=== PATIENT | male | born 1965 | race Two or more races ===

== ENCOUNTER 2024-10-16 04:10 | Inpatient (IN) | payer MEDICAID, OTHER ==
[~2024-10-16] VITALS: Ht 160 cm; Wt 79.5 kg
[2024-10-16 04:38] LABS: BASOPHILS % (AUTO) 0.7 % (0.0-2.0); EOSINOPHILS % (AUTO) 3.7 % (1.0-6.0); HEMATOCRIT 42.9 % (41-53); HEMOGLOBIN 15.2 g/dL (13.5-17.5); LYMPHOCYTES # (AUTO) 2.3 K/uL (1.0-4.8); LYMPHOCYTES % (AUTO) 21.7 % (22.0-44.0); MEAN CORPUSCULAR HEMOGLOBIN 31.7 pg (26.0-34.0); MEAN CORPUSCULAR HGB CONC 35.3 G/dL (31.0-37.0); MEAN CORPUSCULAR VOLUME 90 fL (80-100); MONOCYTES # (AUTO) 0.8 K/uL (0.1-1.0); MONOCYTES % (AUTO) 7.4 % (2.0-9.0); NEUTROPHILS # (AUTO) 6.9 K/uL (1.8-7.7); NEUTROPHILS % (AUTO) 66.5 % (40.0-70.0); PLATELET COUNT (AUTO) 193 K/uL (150-450); RED BLOOD CELL COUNT(AUTO) 4.79 MIL/uL (4.50-5.90); RED CELL DISTRIBUTION WIDTH 13.1 % (11.5-14.5); WHITE BLOOD COUNT (AUTO) 10.4 K/uL (4.5-11.0)
[2024-10-16 04:52] LABS: ANION GAP 9 mmol/L (8-16); CALCIUM, TOTAL 8.8 mg/dL (8.8-10.5); CARBON DIOXIDE 25 mmol/L (22-29); CHLORIDE 100 mmol/L (98-107); CREATININE 0.97 mg/dL (0.60-1.30); GLOMERULAR FILTR. RATE CALC > 60 mL/min (>60); GLUCOSE,RANDOM 233 mg/dL (70-110); POTASSIUM 3.8 mmol/L (3.5-5.1); SODIUM SERUM 134 mmol/L (136-145); UREA NITROGEN, BLOOD 13 mg/dL (7-18)
[2024-10-16] MEDS ORDERED: CARV6.25 PO (04:52)
[2024-10-16] MEDS ORDERED: LISI-893 PO (04:52)
[2024-10-16] MEDS ORDERED: EMPA25TA3 PO (04:52)
[2024-10-16] MEDS ORDERED: ATOR40TA28 PO (04:52)
[2024-10-16] MEDS ORDERED: CLOP75TA60 PO (04:52)
[2024-10-16] MEDS ORDERED: METF-81 PO (04:52)
[2024-10-16] MEDS ORDERED: GLIP5TAB16 PO (04:52)
[2024-10-16] MEDS ORDERED: DEXT38GE12 PO (04:52)
[2024-10-16 04:57] LABS: ALBUMIN 3.2 g/dL (3.4-5.0); BILIRUBIN,DIRECT 0.1 mg/dL (0.00-0.20); BILIRUBIN,TOTAL 0.5 mg/dL (0.1-1.0); TOTAL PROTEIN, SERUM 7.1 g/dL (6.4-8.2)
[2024-10-16 05:00] LABS: TROPONIN I-HIGH SENSITIVITY 10 ng/L (<76)
[2024-10-16 05:05] LABS: ALCOHOL, BLOOD (SERUM) < 3 mg/dL (0-10)
[2024-10-16] MEDS: MORPHINE SULFATE 4 MG/ML SYRINGE IVP ONE (05:06)
[2024-10-16 05:09] LABS: LIPASE 677 U/L (16-77)
[2024-10-16] MEDS: SODIUM CHLORIDE 0.9% 1,000 ML IV ONE ×2 (05:26→15:56)
[2024-10-16] MEDS: IOHEXOL 9 MG/ML 500 ML BOTTLE PO ONE (07:18)
[2024-10-16] MEDS: PIPERACILLIN/TAZO 3.375 GM/D5W 50 ML IV ONE (07:19)
[2024-10-16] MEDS: SODIUM CHLORIDE 0.9% 2,000 ML IV ONE (07:19)
[2024-10-16] MEDS: HYDROmorphone HCL 2 MG/ML SYRINGE IVP ONE (07:20)
[2024-10-16 07:40] LABS: TRIGLYCERIDES 156 mg/dL (15-150)
[2024-10-16 09:08] LABS: APPEARANCE,URINE CLEAR (CLEAR); BILIRUBIN,URINE NEGATIVE (NEGATIVE); COLOR,URINE COLORLESS (YELLOW); GLUCOSE, URINE (UA) 300-500 mg/dL (NEGATIVE); KETONES,URINE NEGATIVE (NEGATIVE); LEUKOCYTE ESTERASE ,URINE NEGATIVE (NEGATIVE); NITRATE,URINE NEGATIVE (NEGATIVE); OCCULT BLOOD,URINE NEGATIVE (NEGATIVE); PROTEIN,URINE TRACE mg/dL (NEGATIVE); SPECIFIC GRAVITIY, URINE 1.006 (1.003-1.030); UROBILINOGEN,URINE <=1.0 mg/dL (<=1.0)
[2024-10-16 09:16] LABS: BACTERIA,URINE None Seen /HPF (None Seen); RBC,URINE None Seen /HPF (0-2); WBC,URINE None Seen /HPF (0-5)
[2024-10-16 12:00] VITALS: BP 130/90; PULSE 70; RESP 18; TEMP 98.6; O2SAT 70
[2024-10-16] MEDS ORDERED: PIPERACILLIN/TAZO 3.375 GM/D5W 50 ML IV SCH (13:00)
[2024-10-16] MEDS ORDERED: PIPERACILLIN/TAZO 3.375 GM/D5W 50 ML IV ONE (13:00)
[2024-10-16] MEDS ORDERED: MORPHINE SULFATE 4 MG/ML SYRINGE IVP PRN ×2 (13:15→15:45)
[2024-10-16] MEDS ORDERED: ONDANSETRON HCL 4 MG/2 ML VIAL IVP PRN ×2 (13:15→15:45)
[2024-10-16] MEDS ORDERED: MAGNESIUM HYDROXIDE SUSPENSION 30 ML UDCUP PO PRN (15:45)
[2024-10-16] MEDS ORDERED: IPRATROPIUM BROMIDE 0.5 MG/2.5 ML NEB SOLUTION NEB PRN (15:45)
[2024-10-16] MEDS ORDERED: ACETAMINOPHEN 325 MG TABLET PO PRN (15:45)
[2024-10-16] MEDS ORDERED: OxyCODONE HCL/ACETAMINOPHEN 5-325 MG TABLET PO PRN (15:45)
[2024-10-16] MEDS ORDERED: BISACODYL 10 MG RECTAL RECTAL SUPPOSITORY PR PRN (15:45)
[2024-10-16] MEDS ORDERED: ZOLPIDEM TARTRATE 5 MG TABLET PO PRN (15:45)
[2024-10-16] MEDS ORDERED: ALBUTEROL SULFATE 2.5 MG/0.5 ML NEB SOLUTION NEB PRN (15:45)
[2024-10-16] MEDS: PIPERACILLIN/TAZO 3.375 GM/D5W 50 ML IV SCH (15:56)
[2024-10-16] MEDS: HEPARIN SODIUM,PORCINE 5,000 UNITS/ML VIAL SQ SCH (17:53)
[2024-10-16] MEDS: DEXTROSE 5%-0.45% SODIUM CHL 1,000 ML IV SCH (17:53)
[2024-10-16] MEDS: DOCUSATE SODIUM 100 MG CAPSULE PO SCH (20:05)
[2024-10-16] MEDS: CLOPIDOGREL BISULFATE 75 MG TABLET PO ONE (20:05)
[2024-10-16 20:10] VITALS: BP 140/83; PULSE 68; RESP 18; TEMP 98; O2SAT 95
[2024-10-17] MEDS: PIPERACILLIN/TAZO 3.375 GM/D5W 50 ML IV SCH (04:29)
[2024-10-17] MEDS ORDERED: SODIUM CHLORIDE 0.9% 500 ML IV ONE (04:33)
[2024-10-17 05:15] VITALS: BP 132/78; PULSE 67; RESP 18; TEMP 98.3; O2SAT 96
[2024-10-17 07:01] LABS: BASOPHILS % (AUTO) 0.4 % (0.0-2.0); EOSINOPHILS % (AUTO) 3.1 % (1.0-6.0); HEMOGLOBIN 14.6 g/dL (13.5-17.5); LYMPHOCYTES # (AUTO) 2.3 K/uL (1.0-4.8); LYMPHOCYTES % (AUTO) 28.5 % (22.0-44.0); MEAN CORPUSCULAR HEMOGLOBIN 31.4 pg (26.0-34.0); MEAN CORPUSCULAR HGB CONC 34.8 G/dL (31.0-37.0); MEAN CORPUSCULAR VOLUME 90 fL (80-100); MONOCYTES # (AUTO) 0.5 K/uL (0.1-1.0); MONOCYTES % (AUTO) 6.2 % (2.0-9.0); NEUTROPHILS # (AUTO) 4.9 K/uL (1.8-7.7); NEUTROPHILS % (AUTO) 61.8 % (40.0-70.0); PLATELET COUNT (AUTO) 179 K/uL (150-450); RED BLOOD CELL COUNT(AUTO) 4.65 MIL/uL (4.50-5.90); RED CELL DISTRIBUTION WIDTH 13.5 % (11.5-14.5)
[2024-10-17 07:11] LABS: ALANINE AMINOTRANSFERASE 23 U/L (12-78); ALBUMIN 2.9 g/dL (3.4-5.0); ALKALINE PHOSPHATASE 88 U/L (46-116); AMYLASE 115 U/L (25-115); ANION GAP 9 mmol/L (8-16); ASPARTATE AMINOTRANSFERASE 16 U/L (15-37); BILIRUBIN,TOTAL 0.8 mg/dL (0.1-1.0); CALCIUM, TOTAL 8.8 mg/dL (8.8-10.5); CARBON DIOXIDE 26 mmol/L (22-29); CHLORIDE 108 mmol/L (98-107); GLOMERULAR FILTR. RATE CALC > 60 mL/min (>60); GLUCOSE,RANDOM 140 mg/dL (70-110); LIPASE 69 U/L (16-77); POTASSIUM 3.7 mmol/L (3.5-5.1); SODIUM SERUM 143 mmol/L (136-145); TOTAL PROTEIN, SERUM 6.6 g/dL (6.4-8.2); UREA NITROGEN, BLOOD 6 mg/dL (7-18)
[2024-10-17 08:27] VITALS: BP 122/79; PULSE 83; RESP 18; TEMP 98.4; O2SAT 97
[2024-10-17] MEDS: PANTOPRAZOLE SODIUM 40 MG/VIAL IVP SCH (08:31)
[2024-10-17 09:00] LABS: TROPONIN I-HIGH SENSITIVITY 16 ng/L (<76)
[2024-10-17 10:29] VITALS: BP 120/76; PULSE 65; RESP 18; TEMP 98.2; O2SAT 97
[2024-10-17 16:08] VITALS: BP 127/74; PULSE 58; RESP 17; TEMP 98.4; O2SAT 98
[2024-10-17 19:28] VITALS: BP 122/71; PULSE 68; RESP 18; TEMP 98.2; O2SAT 98
[2024-10-17 23:59] VITALS: BP 131/77; PULSE 67; RESP 18; TEMP 98.3; O2SAT 98
[2024-10-18 04:40] VITALS: BP 124/72; PULSE 63; RESP 18; TEMP 98.4; O2SAT 98
[2024-10-18 07:25] VITALS: BP 134/80; PULSE 56; RESP 18; TEMP 98.1; O2SAT 100
[2024-10-18 07:25] LABS: BASOPHILS % (AUTO) 1.1 % (0.0-2.0); EOSINOPHILS % (AUTO) 3.3 % (1.0-6.0); HEMATOCRIT 40.9 % (41-53); HEMOGLOBIN 14.3 g/dL (13.5-17.5); LYMPHOCYTES # (AUTO) 2.5 K/uL (1.0-4.8); LYMPHOCYTES % (AUTO) 30.9 % (22.0-44.0); MEAN CORPUSCULAR HEMOGLOBIN 31.3 pg (26.0-34.0); MEAN CORPUSCULAR HGB CONC 35.1 G/dL (31.0-37.0); MEAN CORPUSCULAR VOLUME 89 fL (80-100); MONOCYTES # (AUTO) 0.5 K/uL (0.1-1.0); MONOCYTES % (AUTO) 6.3 % (2.0-9.0); NEUTROPHILS # (AUTO) 4.7 K/uL (1.8-7.7); NEUTROPHILS % (AUTO) 58.4 % (40.0-70.0); PLATELET COUNT (AUTO) 176 K/uL (150-450); RED BLOOD CELL COUNT(AUTO) 4.59 MIL/uL (4.50-5.90); RED CELL DISTRIBUTION WIDTH 13.3 % (11.5-14.5)
[2024-10-18 07:48] LABS: ALANINE AMINOTRANSFERASE 19 U/L (12-78); ALBUMIN 2.8 g/dL (3.4-5.0); ALKALINE PHOSPHATASE 81 U/L (46-116); AMYLASE 94 U/L (25-115); ANION GAP 6 mmol/L (8-16); ASPARTATE AMINOTRANSFERASE 14 U/L (15-37); BILIRUBIN,TOTAL 0.6 mg/dL (0.1-1.0); CALCIUM, TOTAL 8.6 mg/dL (8.8-10.5); CARBON DIOXIDE 27 mmol/L (22-29); CHLORIDE 108 mmol/L (98-107); CREATININE 0.96 mg/dL (0.60-1.30); GLOMERULAR FILTR. RATE CALC > 60 mL/min (>60); GLUCOSE,RANDOM 192 mg/dL (70-110); LIPASE 75 U/L (16-77); SODIUM SERUM 141 mmol/L (136-145); TOTAL PROTEIN, SERUM 6.5 g/dL (6.4-8.2); UREA NITROGEN, BLOOD 8 mg/dL (7-18)
[2024-10-18 10:58] VITALS: BP 125/76; PULSE 54; RESP 18; TEMP 98.4; O2SAT 100
[2024-10-18] MEDS ORDERED: METR500 PO (12:46)
[2024-10-18] MEDS ORDERED: LEVO-72 PO (12:46)
== END 2024-10-18 14:20 | disposition home or self-care (01) | DRG 440 ==
LOC: EMS 04:10 → EDH 07:22 → 6S 10:58 → 5N 10-17 09:56
PROVIDERS: ADMIT Hospitalist; ATTEND Hospitalist
DX: K85.10 Biliary acute pancreatitis without necrosis or infection (principal); I10 Essential (primary) hypertension; I25.10 Atherosclerotic heart disease of native coronary artery without angina pectoris; I48.0 Paroxysmal atrial fibrillation; E11.65 Type 2 diabetes mellitus with hyperglycemia; E78.5 Hyperlipidemia, unspecified; F10.10 Alcohol abuse, uncomplicated; E66.9 Obesity, unspecified; Z68.31 Body mass index [BMI] 31.0-31.9, adult; Z87.442 Personal history of urinary calculi; Z79.02 Long term (current) use of antithrombotics/antiplatelets; Z90.49 Acquired absence of other specified parts of digestive tract; Z95.5 Presence of coronary angioplasty implant and graft
CPT/HCPCS: 71045; 74177; 76705; 80048; 80053; 80076; 81001; 82150; 83690; 83880; 84478; 84484; 85025; 93005; 93306; 99285; G0480; J1171; J1644; J2270; J2470; J2543; J7030; J7040; 36415-L1; 36415-TC

== ENCOUNTER 2024-10-23 00:17 | Inpatient (IN) | payer MEDICAID, OTHER ==
[~2024-10-23] VITALS: Ht 162.6 cm; Wt 79.5 kg
[~2024-10-23 00:17] MED LIST: ATOR40TA28 PO; CARV6.25 PO; CLOP75TA60 PO; EMPA25TA3 PO; GLIP5TAB16 PO; LEVO-72 PO; LISI-893 PO; METF-81 PO; METR500 PO
[2024-10-23] MEDS ORDERED: ONDANSETRON HCL 4 MG/2 ML VIAL IVP ONE (01:30)
[2024-10-23] MEDS: SODIUM CHLORIDE 0.9% 1,000 ML IV ONE ×2 (02:26→08:38)
[2024-10-23] MEDS: SODIUM CHLORIDE 0.9% 2,700 ML IV ONE (02:26)
[2024-10-23] MEDS: HYDROmorphone HCL 2 MG/ML SYRINGE IVP ONE (02:28)
[2024-10-23] MEDS: PIPERACILLIN/TAZO 3.375 GM/D5W 50 ML IV ONE (02:28)
[2024-10-23] MEDS: ONDANSETRON HCL 4 MG/2 ML VIAL IVP ONE (02:29)
[2024-10-23 02:32] LABS: BASOPHILS % (AUTO) 0.5 % (0.0-2.0); EOSINOPHILS % (AUTO) 1.9 % (1.0-6.0); HEMATOCRIT 45.9 % (41-53); HEMOGLOBIN 15.7 g/dL (13.5-17.5); LYMPHOCYTES # (AUTO) 4.2 K/uL (1.0-4.8); MEAN CORPUSCULAR HEMOGLOBIN 30.7 pg (26.0-34.0); MEAN CORPUSCULAR HGB CONC 34.2 G/dL (31.0-37.0); MEAN CORPUSCULAR VOLUME 90 fL (80-100); MONOCYTES # (AUTO) 0.9 K/uL (0.1-1.0); MONOCYTES % (AUTO) 7.5 % (2.0-9.0); NEUTROPHILS # (AUTO) 6.3 K/uL (1.8-7.7); NEUTROPHILS % (AUTO) 54.1 % (40.0-70.0); PLATELET COUNT (AUTO) 251 K/uL (150-450); RED CELL DISTRIBUTION WIDTH 13.1 % (11.5-14.5); WHITE BLOOD COUNT (AUTO) 11.7 K/uL (4.5-11.0)
[2024-10-23 02:49] LABS: BILIRUBIN,DIRECT 0.1 mg/dL (0.00-0.20); BILIRUBIN,TOTAL 0.5 mg/dL (0.1-1.0)
[2024-10-23 02:50] LABS: ALBUMIN 3.5 g/dL (3.4-5.0); TOTAL PROTEIN, SERUM 7.5 g/dL (6.4-8.2)
[2024-10-23 02:53] LABS: CHLORIDE 103 mmol/L (98-107); LACTIC ACID 1.1 mmol/L (0.4-2.0); POTASSIUM 3.9 mmol/L (3.5-5.1); SODIUM SERUM 139 mmol/L (136-145); TROPONIN I-HIGH SENSITIVITY 16 ng/L (<76)
[2024-10-23 02:54] LABS: ANION GAP 10 mmol/L (8-16); CARBON DIOXIDE 26 mmol/L (22-29); CREATININE 1.02 mg/dL (0.60-1.30); GLOMERULAR FILTR. RATE CALC > 60 mL/min (>60); GLUCOSE,RANDOM 167 mg/dL (70-110); UREA NITROGEN, BLOOD 15 mg/dL (7-18)
[2024-10-23 02:55] LABS: B-TYPE NATRIURETIC PEPTIDE 24 pg/mL (0-100)
[2024-10-23 03:23] LABS: PROTHROMBIN TIME 11.4 SEC (9.4-11.6)
[2024-10-23 03:59] LABS: LIPASE 266 U/L (16-77); TRIGLYCERIDES 144 mg/dL (15-150)
[2024-10-23 05:48] LABS: APPEARANCE,URINE CLEAR (CLEAR); BILIRUBIN,URINE NEGATIVE (NEGATIVE); COLOR,URINE LIGHT YELLOW (YELLOW); GLUCOSE, URINE (UA) >=1000 mg/dL (NEGATIVE); KETONES,URINE NEGATIVE (NEGATIVE); LEUKOCYTE ESTERASE ,URINE NEGATIVE (NEGATIVE); NITRATE,URINE NEGATIVE (NEGATIVE); OCCULT BLOOD,URINE NEGATIVE (NEGATIVE); PH,URINE 5.5 (5.0-8.0); PROTEIN,URINE TRACE mg/dL (NEGATIVE); SPECIFIC GRAVITIY, URINE 1.024 (1.003-1.030); UROBILINOGEN,URINE <=1.0 mg/dL (<=1.0)
[2024-10-23 05:54] LABS: RBC,URINE 0-2 /HPF (0-2)
[2024-10-23 05:55] LABS: BACTERIA,URINE Few /HPF (None Seen); WBC,URINE 0-2 /HPF (0-5)
[2024-10-23] MEDS ORDERED: MORPHINE SULFATE 2 MG/ML SYRINGE IVP PRN (06:00)
[2024-10-23] MEDS ORDERED: ACETAMINOPHEN 325 MG TABLET PO PRN (06:00)
[2024-10-23] MEDS ORDERED: ONDANSETRON HCL 4 MG/2 ML VIAL IVP PRN (06:00)
[2024-10-23] MEDS: MORPHINE SULFATE 4 MG/ML SYRINGE IVP ONE (06:10)
[2024-10-23] MEDS ORDERED: DEXTROSE 50%-WATER 25 GM/50 ML SYRINGE IVP PRN (08:15)
[2024-10-23] MEDS: DOCUSATE SODIUM 100 MG CAPSULE PO SCH (08:37)
[2024-10-23] MEDS: PANTOPRAZOLE SODIUM 40 MG/VIAL IVP SCH (08:37)
[2024-10-23] MEDS ORDERED: GADOTERATE MEGLUMINE 10 MMOL/20 ML VIAL IVP ONE (10:07)
[2024-10-23 10:42] VITALS: BP 119/74; PULSE 57; RESP 17; TEMP 97.5; O2SAT 98
[2024-10-23 21:17] VITALS: BP 126/71; PULSE 56; RESP 18; TEMP 97.9; O2SAT 98
[2024-10-24 04:18] VITALS: BP 111/77; PULSE 65; RESP 18; TEMP 97.7; O2SAT 96
[2024-10-24 05:51] LABS: GLUCOMETER DEV NAME(LOC) 5S.1D; GLUCOSE,POINT OF CARE 110 MG/DL (70-110)
[2024-10-24 08:53] VITALS: BP 131/72; PULSE 65; RESP 18; TEMP 98.3; O2SAT 96
[2024-10-24] MEDS ORDERED: MEBROFENIN TC99M/MCL ISOTOPE 1 EA INJ INJ ONE (10:45)
[2024-10-24 16:06] VITALS: BP 139/85; PULSE 57; RESP 18; TEMP 98.3; O2SAT 96
[2024-10-24 20:16] LABS: GLUCOMETER DEV NAME(LOC) 6N.1B; GLUCOSE,POINT OF CARE 95 MG/DL (70-110)
[2024-10-24 20:16] LABS: GLUCOMETER DEV NAME(LOC) 6N.1B; GLUCOSE,POINT OF CARE 106 MG/DL (70-110)
[2024-10-24 20:16] LABS: GLUCOMETER DEV NAME(LOC) 6N.1B; GLUCOSE,POINT OF CARE 89 MG/DL (70-110)
[2024-10-24 20:34] VITALS: BP 132/85; PULSE 55; RESP 18; TEMP 98.1; O2SAT 96
[2024-10-24 23:46] LABS: GLUCOMETER DEV NAME(LOC) 6N.1B; GLUCOSE,POINT OF CARE 117 MG/DL (70-110)
[2024-10-25 03:39] VITALS: BP 115/73; PULSE 57; RESP 18; TEMP 98.1; O2SAT 96
[2024-10-25] MEDS ORDERED: CeFAZolin SODIUM 1 GM VIAL ONE (06:33)
[2024-10-25] MEDS ORDERED: ROCURONIUM BROMIDE 10 MG/ML 5 ML VIAL ONE (06:33)
[2024-10-25] MEDS ORDERED: DEXAMETHASONE SOD PHOS 4 MG/ML VIAL ONE (06:33)
[2024-10-25] MEDS ORDERED: PROPOFOL 1% 20 ML VIAL IVP ONE (06:33)
[2024-10-25] MEDS ORDERED: MIDAZOLAM HCL 2 MG/2 ML VIAL ONE (06:33)
[2024-10-25] MEDS ORDERED: LIDOCAINE/PF 2% 5 ML VIAL ONE (06:33)
[2024-10-25] MEDS ORDERED: SUGAMMADEX SODIUM 200 MG/2 ML VIAL IVP ONE (06:33)
[2024-10-25] MEDS ORDERED: EPHEDrine SULFATE 50 MG/ML VIAL ONE (06:33)
[2024-10-25] MEDS ORDERED: ONDANSETRON HCL 4 MG/2 ML VIAL ONE (06:33)
[2024-10-25] MEDS ORDERED: 0.9% SODIUM CHLORIDE 10 ML VIAL ONE (06:33)
[2024-10-25] MEDS ORDERED: FentaNYL CITRATE PF 100 MCG/2 ML VIAL ONE (06:33)
[2024-10-25] MEDS ORDERED: KETOROLAC TROMETHAMINE 60 MG/2 ML VIAL IM ONE (06:33)
[2024-10-25] MEDS ORDERED: ACETAMINOPHEN/ISO-OSM 1000 MG/100 ML BOTTLE IV ONE (06:33)
[2024-10-25 07:50] LABS: BASOPHILS % (AUTO) 0.7 % (0.0-2.0); EOSINOPHILS % (AUTO) 4.2 % (1.0-6.0); HEMATOCRIT 45.2 % (41-53); LYMPHOCYTES # (AUTO) 2.3 K/uL (1.0-4.8); LYMPHOCYTES % (AUTO) 27.3 % (22.0-44.0); MEAN CORPUSCULAR HEMOGLOBIN 31.5 pg (26.0-34.0); MEAN CORPUSCULAR HGB CONC 35.3 G/dL (31.0-37.0); MEAN CORPUSCULAR VOLUME 89 fL (80-100); MONOCYTES # (AUTO) 0.6 K/uL (0.1-1.0); NEUTROPHILS # (AUTO) 5.2 K/uL (1.8-7.7); NEUTROPHILS % (AUTO) 60.8 % (40.0-70.0); PLATELET COUNT (AUTO) 207 K/uL (150-450); RED BLOOD CELL COUNT(AUTO) 5.07 MIL/uL (4.50-5.90); RED CELL DISTRIBUTION WIDTH 13.4 % (11.5-14.5); WHITE BLOOD COUNT (AUTO) 8.6 K/uL (4.5-11.0)
[2024-10-25 08:07] VITALS: BP 121/71; PULSE 59; RESP 18; TEMP 97.8; O2SAT 96
[2024-10-25 08:26] LABS: ALANINE AMINOTRANSFERASE 41 U/L (12-78); ALBUMIN 3.1 g/dL (3.4-5.0); ALKALINE PHOSPHATASE 92 U/L (46-116); ANION GAP 7 mmol/L (8-16); ASPARTATE AMINOTRANSFERASE 20 U/L (15-37); BILIRUBIN,TOTAL 0.6 mg/dL (0.1-1.0); CALCIUM, TOTAL 8.9 mg/dL (8.8-10.5); CARBON DIOXIDE 28 mmol/L (22-29); CHLORIDE 105 mmol/L (98-107); CREATININE 0.78 mg/dL (0.60-1.30); GLOMERULAR FILTR. RATE CALC > 60 mL/min (>60); GLUCOSE,RANDOM 131 mg/dL (70-110); POTASSIUM 3.7 mmol/L (3.5-5.1); SODIUM SERUM 140 mmol/L (136-145); TOTAL PROTEIN, SERUM 7.1 g/dL (6.4-8.2); UREA NITROGEN, BLOOD 7 mg/dL (7-18)
[2024-10-25] MEDS ORDERED: MEPERIDINE-PF 25 MG/ML VIAL IVP PRN (09:45)
[2024-10-25] MEDS ORDERED: FentaNYL CITRATE PF 100 MCG/2 ML VIAL IVP PRN (09:45)
[2024-10-25] MEDS ORDERED: HYDROmorphone HCL 2 MG/ML SYRINGE IVP PRN (09:45)
[2024-10-25] MEDS ORDERED: IOHEXOL 240 MG/ML 20 ML VIAL ONE (09:52)
[2024-10-25] MEDS: ETHYL ALCOHOL 62% ANTISEPTIC NASAL SANITIZER 0.6 ML AMPUL NASAL ONE (10:02)
[2024-10-25] MEDS: CHLORHEXIDINE GLUCONATE 2% TOWELETTE [2'S/6'S] TP ONE (10:02)
[2024-10-25] MEDS: RINGERS SOLUTION,LACTATED 1,000 ML IV ONE (10:09)
[2024-10-25] MEDS ORDERED: ACETAMINOPHEN 500 MG TABLET PO PRN (10:45)
[2024-10-25] MEDS: HYDROCODONE/ACETAMINOPHEN 5-325 MG TABLET PO PRN (11:59)
[2024-10-25] MEDS: BUPIVACAINE HCL 0.5% 50 ML VIAL ONE (12:01)
[2024-10-25] MEDS: LIDOCAINE 2%/EPI 1:200,000/PF 20 ML VIAL ONE (12:01)
[2024-10-25 12:11] LABS: GLUCOMETER DEV NAME(LOC) 5S.2D; GLUCOSE,POINT OF CARE 154 MG/DL (70-110)
[2024-10-25 12:30] VITALS: BP 146/76; PULSE 68; RESP 20; TEMP 97.7; O2SAT 96
[2024-10-25 15:00] VITALS: PULSE 88; RESP 16; O2SAT 95
[2024-10-25 16:21] VITALS: BP 140/74; PULSE 85; RESP 18; TEMP 98.2; O2SAT 94
[2024-10-25] MEDS: INSULIN LISPRO 100 UNITS/ML SQ PRN (18:11)
[2024-10-25 18:25] LABS: GLUCOMETER DEV NAME(LOC) 5N.2C; GLUCOSE,POINT OF CARE 318 MG/DL (70-110)
[2024-10-25 19:38] VITALS: BP 127/72; PULSE 62; RESP 16; TEMP 98.2; O2SAT 97
[2024-10-25] MEDS: OXYGEN THERAPY IH SCH (21:15)
[2024-10-25 22:16] LABS: GLUCOMETER DEV NAME(LOC) 5S.2D; GLUCOSE,POINT OF CARE 319 MG/DL (70-110)
[2024-10-26 00:01] VITALS: BP 146/80; PULSE 71; RESP 15; TEMP 97.8; O2SAT 98
[2024-10-26 03:37] VITALS: BP 122/76; PULSE 66; RESP 16; TEMP 98.2; O2SAT 95
[2024-10-26 05:51] LABS: GLUCOMETER DEV NAME(LOC) 5N.2C; GLUCOSE,POINT OF CARE 186 MG/DL (70-110)
[2024-10-26 07:01] LABS: ANION GAP 9 mmol/L (8-16); CALCIUM, TOTAL 9.4 mg/dL (8.8-10.5); CARBON DIOXIDE 25 mmol/L (22-29); CHLORIDE 102 mmol/L (98-107); CREATININE 0.89 mg/dL (0.60-1.30); GLOMERULAR FILTR. RATE CALC > 60 mL/min (>60); GLUCOSE,RANDOM 190 mg/dL (70-110); SODIUM SERUM 136 mmol/L (136-145); UREA NITROGEN, BLOOD 13 mg/dL (7-18)
[2024-10-26 07:08] LABS: BASOPHILS % (AUTO) 0.4 % (0.0-2.0); EOSINOPHILS % (AUTO) 0 % (1.0-6.0); HEMOGLOBIN 14.7 g/dL (13.5-17.5); LYMPHOCYTES # (AUTO) 1.6 K/uL (1.0-4.8); LYMPHOCYTES % (AUTO) 9.2 % (22.0-44.0); MEAN CORPUSCULAR VOLUME 89 fL (80-100); MONOCYTES # (AUTO) 1.3 K/uL (0.1-1.0); MONOCYTES % (AUTO) 7.2 % (2.0-9.0); NEUTROPHILS # (AUTO) 14.7 K/uL (1.8-7.7); NEUTROPHILS % (AUTO) 83.2 % (40.0-70.0); PLATELET COUNT (AUTO) 210 K/uL (150-450); RED BLOOD CELL COUNT(AUTO) 4.74 MIL/uL (4.50-5.90); RED CELL DISTRIBUTION WIDTH 13.1 % (11.5-14.5); WHITE BLOOD COUNT (AUTO) 17.7 K/uL (4.5-11.0)
[2024-10-26 08:01] LABS: GLUCOMETER DEV NAME(LOC) 6N.1B; GLUCOSE,POINT OF CARE 120 MG/DL (70-110)
[2024-10-26 09:10] VITALS: BP 136/78; PULSE 58; RESP 16; TEMP 98.2; O2SAT 97
[2024-10-26 11:51] LABS: GLUCOMETER DEV NAME(LOC) 4E.2; GLUCOSE,POINT OF CARE 128 MG/DL (70-110)
[2024-10-26 11:51] LABS: GLUCOMETER DEV NAME(LOC) 4E.2; GLUCOSE,POINT OF CARE 131 MG/DL (70-110)
[2024-10-26 12:07] LABS: GLUCOMETER DEV NAME(LOC) 5N.2C; GLUCOSE,POINT OF CARE 203 MG/DL (70-110)
[2024-10-26 12:12] LABS: BASOPHILS % (AUTO) 0.7 % (0.0-2.0); EOSINOPHILS % (AUTO) 0.4 % (1.0-6.0); HEMATOCRIT 42.2 % (41-53); HEMOGLOBIN 14.6 g/dL (13.5-17.5); LYMPHOCYTES # (AUTO) 2.5 K/uL (1.0-4.8); LYMPHOCYTES % (AUTO) 14.7 % (22.0-44.0); MEAN CORPUSCULAR HEMOGLOBIN 30.9 pg (26.0-34.0); MEAN CORPUSCULAR HGB CONC 34.5 G/dL (31.0-37.0); MEAN CORPUSCULAR VOLUME 90 fL (80-100); MONOCYTES # (AUTO) 1.5 K/uL (0.1-1.0); MONOCYTES % (AUTO) 8.9 % (2.0-9.0); NEUTROPHILS # (AUTO) 12.7 K/uL (1.8-7.7); NEUTROPHILS % (AUTO) 75.3 % (40.0-70.0); PLATELET COUNT (AUTO) 198 K/uL (150-450); RED BLOOD CELL COUNT(AUTO) 4.71 MIL/uL (4.50-5.90); RED CELL DISTRIBUTION WIDTH 13.3 % (11.5-14.5); WHITE BLOOD COUNT (AUTO) 16.8 K/uL (4.5-11.0)
[2024-10-26 12:30] VITALS: BP 134/77; PULSE 67; RESP 18; TEMP 97.6; O2SAT 99
[2024-10-26] MEDS ORDERED: CARVEDILOL 3.125 MG TABLET PO SCH (21:00)
[2024-10-27] MEDS ORDERED: ATORVASTATIN CALCIUM 40 MG TABLET PO SCH (09:00)
== END 2024-10-26 16:00 | disposition home or self-care (01) | DRG 263 ==
LOC: EMS 00:17 → EDH 05:46 → 4E 10:18 → 5N 10-25 11:26
PROVIDERS: ADMIT Internal Medicine; ATTEND Internal Medicine
PROC: 0FT44ZZ Resection of Gallbladder, Percutaneous Endoscopic Approach (ICD-10-PCS; principal; 2024-10-25 10:30)
DX: K80.12 Calculus of gallbladder with acute and chronic cholecystitis without obstruction (principal); E11.9 Type 2 diabetes mellitus without complications; I25.10 Atherosclerotic heart disease of native coronary artery without angina pectoris; Z95.5 Presence of coronary angioplasty implant and graft; I48.0 Paroxysmal atrial fibrillation; E66.9 Obesity, unspecified; I10 Essential (primary) hypertension; K86.1 Other chronic pancreatitis; Z83.3 Family history of diabetes mellitus; Z68.30 Body mass index [BMI] 30.0-30.9, adult
CPT/HCPCS: 71045; 74176; 74183; 76705; 78226; 80048; 80053; 80076; 81001; 82962; 83605; 83690; 83880; 84145; 84478; 84484; 85025; 85610; 87040; 88304; 93005; 96361; 96365; 96375; 99285; A9537; G0238; G0378; J0131; J0690; J1100; J1885; J2250; J2270; J2405; J2470; J2543; J2704; J3010; J3490; J7030; J7120; Q9966; 36415-L1; 36415-TC

== ENCOUNTER 2025-02-10 13:34 | Inpatient (IN) | payer MEDICAID, OTHER ==
[~2025-02-10] VITALS: Ht 167.6 cm; Wt 61.8 kg
[~2025-02-10 13:34] MED LIST changes: -CARV6.25 PO; -CLOP75TA60 PO; +CLOP75TA83 PO; -EMPA25TA3 PO; -GLIP5TAB16 PO; -LEVO-72 PO; -LISI-893 PO; -METR500 PO
[2025-02-10] MEDS ORDERED: ASPI-1444 PO (13:47)
[2025-02-10] MEDS ORDERED: CARV-165 PO (13:47)
[2025-02-10] MEDS ORDERED: EMPA25TA3 PO (13:47)
[2025-02-10] MEDS ORDERED: NITR0.4T52 SL (13:47)
[2025-02-10] MEDS ORDERED: APIX5TAB PO (13:47)
[2025-02-10] MEDS ORDERED: LISI-894 PO (13:47)
[2025-02-10 13:56] LABS: GLUCOMETER DEV NAME(LOC) ER.7; GLUCOSE,POINT OF CARE 144 MG/DL (70-110)
[2025-02-10 14:07] LABS: PLATELET COUNT (AUTO) 199 K/uL (150-450); RED BLOOD CELL COUNT(AUTO) 4.94 MIL/uL (4.50-5.90); RED CELL DISTRIBUTION WIDTH 13.2 % (11.5-14.5); WHITE BLOOD COUNT (AUTO) 8.6 K/uL (4.5-11.0)
[2025-02-10 14:17] LABS: CALCIUM, TOTAL 8.8 mg/dL (8.8-10.5); CREATININE 0.93 mg/dL (0.60-1.30); GLOMERULAR FILTR. RATE CALC > 60 mL/min (>60); GLUCOSE,RANDOM 145 mg/dL (70-110); SODIUM SERUM 137 mmol/L (136-145); UREA NITROGEN, BLOOD 12 mg/dL (7-18)
[2025-02-10 14:30] LABS: TROPONIN I-HIGH SENSITIVITY 13 ng/L (<76)
[2025-02-10] MEDS: ONDANSETRON HCL 4 MG/2 ML VIAL IVP ONE (14:38)
[2025-02-10] MEDS: NITROGLYCERIN 2% (1 GM=INCH) OINTMENT PACKET TP ONE (14:38)
[2025-02-10] MEDS: MORPHINE SULFATE 4 MG/ML SYRINGE IVP ONE (14:39)
[2025-02-10] MEDS: NITROGLYCERIN 0.4 MG SUBLINGUAL TABLET #25 SL ONE (14:39)
[2025-02-10] MEDS ORDERED: ONDANSETRON HCL 4 MG/2 ML VIAL IVP PRN (16:00)
[2025-02-10] MEDS ORDERED: NITROGLYCERIN 0.4 MG SUBLINGUAL TABLET #25 SL PRN (16:00)
[2025-02-10] MEDS ORDERED: ACETAMINOPHEN 325 MG TABLET PO PRN (16:00)
[2025-02-10 18:10] LABS: TROPONIN I-HIGH SENSITIVITY 15 ng/L (<76)
[2025-02-10 20:50] VITALS: BP 102/64; PULSE 55; RESP 16; TEMP 97.3; O2SAT 97
[2025-02-10] MEDS: DOCUSATE SODIUM 100 MG CAPSULE PO SCH (21:00)
[2025-02-10] MEDS: CLOPIDOGREL BISULFATE 75 MG TABLET PO SCH (21:55)
[2025-02-10] MEDS: APIXABAN 5 MG TABLET PO SCH (21:55)
[2025-02-11 00:15] VITALS: BP 104/69; PULSE 69; RESP 15; TEMP 97.5; O2SAT 96
[2025-02-11 04:14] VITALS: BP 117/71; PULSE 68; RESP 16; TEMP 98.1; O2SAT 97
[2025-02-11 07:45] LABS: PLATELET COUNT (AUTO) 190 K/uL (150-450); RED BLOOD CELL COUNT(AUTO) 4.73 MIL/uL (4.50-5.90); RED CELL DISTRIBUTION WIDTH 13.1 % (11.5-14.5); WHITE BLOOD COUNT (AUTO) 12.7 K/uL (4.5-11.0)
[2025-02-11 07:50] VITALS: BP 125/66; PULSE 67; RESP 18; TEMP 98.1; O2SAT 98
[2025-02-11 07:59] LABS: CALCIUM, TOTAL 8.7 mg/dL (8.8-10.5); CREATININE 1.03 mg/dL (0.60-1.30); GLOMERULAR FILTR. RATE CALC > 60 mL/min (>60); GLUCOSE,RANDOM 158 mg/dL (70-110); SODIUM SERUM 139 mmol/L (136-145); UREA NITROGEN, BLOOD 13 mg/dL (7-18)
[2025-02-11] MEDS: EMPAGLIFLOZIN 25 MG TABLET PO SCH (08:44)
[2025-02-11] MEDS: ASPIRIN 81 MG DR TABLET PO SCH (08:44)
[2025-02-11] MEDS: ATORVASTATIN CALCIUM 40 MG TABLET PO SCH (08:44)
[2025-02-11 15:15] VITALS: BP 106/56; PULSE 57; RESP 18; TEMP 98.2; O2SAT 97
== END 2025-02-11 18:30 | disposition left against medical advice (07) | DRG 303 ==
LOC: EMS 13:35 → EDH 15:52 → 5S 20:40
PROVIDERS: ADMIT Internal Medicine; ATTEND Internal Medicine
DX: I25.10 Atherosclerotic heart disease of native coronary artery without angina pectoris (principal); R65.10 Systemic inflammatory response syndrome (SIRS) of non-infectious origin without acute organ dysfunction; E11.9 Type 2 diabetes mellitus without complications; R74.8 Abnormal levels of other serum enzymes; I48.91 Unspecified atrial fibrillation; Z53.29 Procedure and treatment not carried out because of patient's decision for other reasons; Z79.01 Long term (current) use of anticoagulants; Z83.3 Family history of diabetes mellitus; Z87.891 Personal history of nicotine dependence; Z90.49 Acquired absence of other specified parts of digestive tract; Z95.5 Presence of coronary angioplasty implant and graft
CPT/HCPCS: 71045; 80048; 82962; 83690; 83735; 84484; 85025; 93005; 93306; 96374; 99285; G0378; J2270; J2405; 36415-L1; 36415-TC

== ENCOUNTER 2025-05-19 18:52 | Inpatient (IN) | payer OTHER ==
[~2025-05-19] VITALS: Ht 167.6 cm; Wt 728.9 kg
[~2025-05-19 18:52] MED LIST changes: +APIX5TAB PO; +ASPI-1444 PO; +CARV-165 PO; +EMPA25TA3 PO; +LISI-894 PO; +NITR0.4T52 SL
[2025-05-19 19:42] LABS: PLATELET COUNT (AUTO) 224 K/uL (150-450); RED BLOOD CELL COUNT(AUTO) 4.72 MIL/uL (4.50-5.90); RED CELL DISTRIBUTION WIDTH 12.9 % (11.5-14.5); WHITE BLOOD COUNT (AUTO) 10.3 K/uL (4.5-11.0)
[2025-05-19 19:48] LABS: CALCIUM, TOTAL 8.4 mg/dL (8.8-10.5); CREATININE 1.53 mg/dL (0.60-1.30); GLOMERULAR FILTR. RATE CALC 47 mL/min (>60); GLUCOSE,RANDOM 198 mg/dL (70-110); SODIUM SERUM 137 mmol/L (136-145); UREA NITROGEN, BLOOD 21 mg/dL (7-18)
[2025-05-19 19:54] LABS: CREATINE KINASE, TOTAL ONLY 130 U/L (39-308)
[2025-05-19 19:58] LABS: TROPONIN I-HIGH SENSITIVITY 20 ng/L (<76)
[2025-05-19] MEDS: SODIUM CHLORIDE 0.9% 1,000 ML IV ONE (20:14)
[2025-05-19] MEDS: NITROGLYCERIN 2% (1 GM=INCH) OINTMENT PACKET TP ONE (20:15)
[2025-05-19] MEDS ORDERED: ACETAMINOPHEN 325 MG TABLET PO PRN (21:45)
[2025-05-19] MEDS ORDERED: ONDANSETRON HCL 4 MG/2 ML VIAL IVP PRN (21:45)
[2025-05-19] MEDS ORDERED: NITROGLYCERIN 0.4 MG SUBLINGUAL TABLET #25 SL PRN (22:00)
[2025-05-20] VITALS (12 sets, daily range): BP systolic 94–119; BP diastolic 55–75; PULSE 61–75; RESP 16–19; TEMP 97.7–98.4; O2SAT 94–100
[2025-05-20] MEDS ORDERED: HEPARIN SODIUM,PORCINE 5,000 UNITS/ML VIAL SQ SCH
[2025-05-20 06:48] LABS: PLATELET COUNT (AUTO) 192 K/uL (150-450); RED BLOOD CELL COUNT(AUTO) 4.43 MIL/uL (4.50-5.90); RED CELL DISTRIBUTION WIDTH 13.3 % (11.5-14.5); WHITE BLOOD COUNT (AUTO) 10.1 K/uL (4.5-11.0)
[2025-05-20 07:02] LABS: CALCIUM, TOTAL 8.3 mg/dL (8.8-10.5); CREATININE 0.92 mg/dL (0.60-1.30); GLOMERULAR FILTR. RATE CALC > 60 mL/min (>60); GLUCOSE,RANDOM 139 mg/dL (70-110); SODIUM SERUM 141 mmol/L (136-145); UREA NITROGEN, BLOOD 16 mg/dL (7-18)
[2025-05-20] MEDS: DOCUSATE SODIUM 100 MG CAPSULE PO SCH (09:00)
[2025-05-20] MEDS ORDERED: EMPAGLIFLOZIN 25 MG TABLET PO SCH (09:00)
[2025-05-20] MEDS: APIXABAN 5 MG TABLET PO SCH (09:09)
[2025-05-20] MEDS: ATORVASTATIN CALCIUM 40 MG TABLET PO SCH (09:09)
[2025-05-20] MEDS: EMPAGLIFLOZIN 25 MG TABLET PO SCH (09:09)
[2025-05-20] MEDS: MORPHINE SULFATE 4 MG/ML SYRINGE IVP PRN (10:12)
[2025-05-20 10:54] LABS: APPEARANCE,URINE CLEAR (CLEAR); GLUCOSE, URINE (UA) >=1000 mg/dL (NEGATIVE); LEUKOCYTE ESTERASE ,URINE NEGATIVE (NEGATIVE); NITRATE,URINE NEGATIVE (NEGATIVE); OCCULT BLOOD,URINE NEGATIVE (NEGATIVE); SPECIFIC GRAVITIY, URINE 1.008 (1.003-1.030)
[2025-05-20 11:15] LABS: TROPONIN I-HIGH SENSITIVITY 16 ng/L (<76)
[2025-05-20] MEDS ORDERED: HEPARIN SODIUM,PORCINE 5,000 UNITS/ML VIAL IVP ONE (11:30)
[2025-05-20] MEDS ORDERED: HEPARIN SODIUM,PORCINE 5,000 UNITS/ML VIAL IVP PRN ×4 (11:30→21:00)
[2025-05-20] MEDS ORDERED: HEPARIN SODIUM 25000 UNITS/D5W 250 ML IV PRN (11:30)
[2025-05-20 12:03] LABS: PLATELET COUNT (AUTO) 193 K/uL (150-450); RED BLOOD CELL COUNT(AUTO) 4.60 MIL/uL (4.50-5.90); RED CELL DISTRIBUTION WIDTH 13.3 % (11.5-14.5); WHITE BLOOD COUNT (AUTO) 9.5 K/uL (4.5-11.0)
[2025-05-20] MEDS: HEPARIN SODIUM,PORCINE 5,000 UNITS/ML VIAL IVP ONE (20:44)
[2025-05-20] MEDS: CLOPIDOGREL BISULFATE 75 MG TABLET PO SCH (20:45)
[2025-05-20] MEDS: HEPARIN SODIUM 25000 UNITS/D5W 250 ML IV PRN (20:46)
[2025-05-21] VITALS: BP 103/54; PULSE 64; RESP 16; TEMP 98.2; O2SAT 95
[2025-05-21 04:22] VITALS: BP 103/65; PULSE 67; RESP 17; TEMP 98.6; O2SAT 95
[2025-05-21 06:44] LABS: PLATELET COUNT (AUTO) 198 K/uL (150-450); RED BLOOD CELL COUNT(AUTO) 4.61 MIL/uL (4.50-5.90); RED CELL DISTRIBUTION WIDTH 13.0 % (11.5-14.5); WHITE BLOOD COUNT (AUTO) 11.4 K/uL (4.5-11.0)
[2025-05-21 07:06] LABS: GLUCOMETER DEV NAME(LOC) 5N.1D; GLUCOSE,POINT OF CARE 133 MG/DL (70-110)
[2025-05-21 07:30] VITALS: BP 96/59; PULSE 62; RESP 16; TEMP 98.4; O2SAT 96
[2025-05-21] MEDS ORDERED: REGADENOSON 0.4 MG/5 ML PF SYRINGE IVP ONE (10:00)
[2025-05-21] MEDS ORDERED: SESTAMIBI TC99M/UD ISOTOPE 1 EA INJ INJ ONE ×2 (11:05→13:00)
[2025-05-21] MEDS: REGADENOSON 0.4 MG/5 ML PF SYRINGE IVP ONE (11:45)
[2025-05-21] MEDS: HEPARIN SODIUM,PORCINE 5,000 UNITS/ML VIAL IVP PRN (18:55)
[2025-05-21 21:06] VITALS: BP 126/72; PULSE 64; RESP 17; TEMP 98.4; O2SAT 97
[2025-05-21 21:51] LABS: GLUCOMETER DEV NAME(LOC) 5N.1D; GLUCOSE,POINT OF CARE 195 MG/DL (70-110)
[2025-05-21 21:51] LABS: GLUCOMETER DEV NAME(LOC) 5N.1D; GLUCOSE,POINT OF CARE 171 MG/DL (70-110)
[2025-05-21 21:51] LABS: GLUCOMETER DEV NAME(LOC) 5N.1D; GLUCOSE,POINT OF CARE 225 MG/DL (70-110)
[2025-05-21] MEDS ORDERED: DEXTROSE 50%-WATER 25 GM/50 ML SYRINGE IVP PRN (22:15)
[2025-05-22 00:32] VITALS: BP 112/58; PULSE 55; RESP 16; TEMP 98.2; O2SAT 97
[2025-05-22 04:12] VITALS: BP 116/71; PULSE 62; RESP 16; TEMP 98.2; O2SAT 96
[2025-05-22 06:45] LABS: PLATELET COUNT (AUTO) 185 K/uL (150-450); RED BLOOD CELL COUNT(AUTO) 4.65 MIL/uL (4.50-5.90); RED CELL DISTRIBUTION WIDTH 13.2 % (11.5-14.5); WHITE BLOOD COUNT (AUTO) 10.8 K/uL (4.5-11.0)
[2025-05-22 07:03] LABS: ASPARTATE AMINOTRANSFERASE 19 U/L (15-37); CALCIUM, TOTAL 8.6 mg/dL (8.8-10.5); CREATININE 0.87 mg/dL (0.60-1.30); GLOMERULAR FILTR. RATE CALC > 60 mL/min (>60); GLUCOSE,RANDOM 121 mg/dL (70-110); SODIUM SERUM 141 mmol/L (136-145); TOTAL PROTEIN, SERUM 7.1 g/dL (6.4-8.2); UREA NITROGEN, BLOOD 15 mg/dL (7-18)
[2025-05-22 07:28] VITALS: BP 118/69; PULSE 55; RESP 18; TEMP 98.1; O2SAT 96
[2025-05-22] MEDS: APIXABAN 5 MG TABLET PO SCH (08:16)
[2025-05-22 10:54] LABS: TROPONIN I-HIGH SENSITIVITY 13 ng/L (<76)
[2025-05-22] MEDS: INSULIN LISPRO 100 UNITS/ML SQ PRN (11:38)
[2025-05-22 11:59] VITALS: BP 117/71; PULSE 52; RESP 17; TEMP 98; O2SAT 98
[2025-05-22] MEDS ORDERED: CARV3 PO (12:58)
[2025-05-22 20:16] LABS: GLUCOMETER DEV NAME(LOC) 5N.1D; GLUCOSE,POINT OF CARE 124 MG/DL (70-110)
[2025-05-22 20:16] LABS: GLUCOMETER DEV NAME(LOC) 5N.1D; GLUCOSE,POINT OF CARE 194 MG/DL (70-110)
== END 2025-05-22 15:50 | disposition home or self-care (01) | DRG 303 ==
LOC: EMS 18:55 → EDH 21:44 → EMS 22:06 → CMPBEDREQ 22:52 → 5N 23:45
PROVIDERS: ADMIT Internal Medicine; ATTEND Internal Medicine
DX: I25.110 Atherosclerotic heart disease of native coronary artery with unstable angina pectoris (principal); E11.9 Type 2 diabetes mellitus without complications; F17.200 Nicotine dependence, unspecified, uncomplicated; E78.5 Hyperlipidemia, unspecified; I48.91 Unspecified atrial fibrillation; I11.0 Hypertensive heart disease with heart failure; I50.9 Heart failure, unspecified; Z95.5 Presence of coronary angioplasty implant and graft; Z83.3 Family history of diabetes mellitus; Z79.02 Long term (current) use of antithrombotics/antiplatelets; Z79.01 Long term (current) use of anticoagulants
CPT/HCPCS: 71045; 71250; 78452; 80048; 80053; 81001; 82271; 82550; 82962; 83735; 83880; 84484; 85025; 85610; 85730; 93005; 93017; 93306; 99285; A9500; J1644; J2270; J2785; J7030; 36415-L1; 36415-TC